=== PATIENT | male | born 1965 ===

== ENCOUNTER 2021-01-31 13:23 | Emergency (ER) | payer OTHER ==
[2021-01-31] MEDS ORDERED: Diphtheria,Pertussis(Acell),Tetanus Vaccine 0.5 ML Syringe IM ONE (16:28)
[2021-01-31] MEDS ORDERED: ceFAZolin 2 GM in Premix Bag 1 BAG IV ONE (17:05)
--- NOTE | 2021-01-31 17:19 | EDM.PDOC ---
ED HPI GENERAL MEDICAL PROBLEM - General Chief Complaint: Upper Extremity Injury/Pain Stated Complaint: L HAND THUMB NAIL HURT Time Seen by Provider: 01/31/21 16:13 Source of Information: Reports: Patient History Limitations: Reports: No Limitations - History of Present Illness INITIAL COMMENTS - FREE TEXT/NARRATIVE: HISTORY AND PHYSICAL: History of present illness: Patient is a 55-year-old male who presents emergency room today with concern of left thumb injury that occurred about 2 this afternoon. 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 Patient states that he wrapped up the area and came to the emergency room when he was able to get out of work. Patient states that he is not up-to-date on tetanus and would like to update this today. Patient states that he is fully able to move the hand without difficulty and only has pain overlying the area of the nail. Patient denies any sensation change or any other symptoms or concerns. Patient denies fever, chills, chest pain, shortness of breath, or cough. Denies headache, neck stiff ness, change in vision, syncope, or near syncope. Denies nausea, vomiting, abdominal pain, diarrhea, constipation, or dysuria. Has not noted any blood in urine or stool. Patient has been eating and drinking appropriately. Review of systems: As per history of present illness and below otherwise all systems reviewed and negative. Past medical history: As per history of present illness and as reviewed below otherwise noncontributory. Surgical history: As per history of present illness and as reviewed below otherwise noncontributory. Social history: See social history for further information Family history: As per history of present illness and as reviewed below otherwise noncontributory. Physical exam: General: Patient is alert, oriented, and in no acute distress. Patient sitting comfortably on exam table. Vitals stable and reviewed by me HEENT: Atraumatic, normocephalic, pupils equal and reactive bilaterally, negative for conjunctival pallor or scleral icterus, mucous membranes moist, TMs normal bilaterally, throat clear, neck supple, nontender, trachea midline. No drooling or trismus noted. No meningeal signs. No hot potato voice noted. Lungs: Clear to auscultation, breath sounds equal bilaterally, chest nontender. Heart: S1S2, regular rate and rhythm without overt murmur Abdomen: Soft, nondistended, nontender. Negative for masses or hepatosplenomegaly. Negative for costovertebral tenderness. Pelvis: Stable nontender. Genitourinary: Deferred. Rectal: Deferred. Skin: Intact, warm, dry. No lesions or rashes noted. Extremities: There is a complete nail avulsion of the left hand thumb with a centimeter and a half of exposed bone underlying the thumb avulsion. There is no tissue available to cover the bone and the nail is completely missing. Patient does have full range of motion of the thumb without deficit and neurovascularly intact. Radial pulses grossly intact of the left upper extremity with capillary refill less than 2 seconds. Otherwise, atraumatic, negative for cords or calf pain. Neurovascular unremarkable. Neuro: Awake, alert, oriented. Cranial nerves II through XII unremarkable. Cerebellum unremarkable. Motor and sensory unremarkable throughout. Exam nonfocal. Notes: Patient is a 55-year-old male who presents to the ED today secondary to thumb injury that occurred 3 hours prior to arrival to the emergency room. Upon arrival to the ED, patient is vitally stable and well-appearing on exam. He fernandes s have complete avulsion of his left hand thumb with a centimeter and a half of bone exposed underlying the avulsion. Patient has full range of motion and neurovascularly intact of the thumb. X-ray of the left hand shows there is a 3 mm thin linear radiodense structure in the palmar soft tissues of the distal thumb, consistent with foreign body. Overlying soft tissue edema is noted. There is no evidence of underlying fracture or joint dislocation. Remainder of hand is unremarkable. I did call and speak to the hand specialist on-call, Dr. Aviles, and thoroughly discussed patient's case. He would like patient to be transferred through their emergency room where he will evaluate patient later tonight in order to perform a dermal matrix/graft to cover the exposed bone. I did call and speak to Dr. Rincon, emergency room provider, and thoroughly discussed patient's case. Accepting of transfer. Patient offered EMS transfer but would like to transfer private vehicle. Patient is vitally stable and remains comfortable throughout stay in ED. Voices understanding and is agreeable to plan of care. Denies any further questions or concerns at this time. Diagnostics: Hand XR Therapeutics: Ancef, Tdap Impression: Thumb nail avulsion, open, left Plan: Transfer to Dr. Aviles, hand specialist/Dr. Rincon, emergency room at [facility] via private vehicle Definitive disposition and diagnosis as appropriate pending reevaluation and review of above. left thumb Pain Score (Numeric/FACES): 6 - Related Data Allergies Allergy/AdvReac Type Severity Reaction Status Date / Time No Known Allergies Allergy Verified 01/31/21 13:46 Home Meds: Home Meds . [No Known Home Meds] 01/31/21 [History] Past Medical History - Past Health History Medical/Surgical History: Denies Medical/Surgical History - Past Surgical History Musculoskeletal Surgical History: Reports: Other (See Below) Other Musculoskeletal Surgeries/Procedures:: Tendon repair L 5th finger Social & Family History - Family History Family Medical History: No Pertinent Family History - Tobacco Use Tobacco Use Status *Q: Current Every Day Tobacco User Years of Tobacco use: 20 Packs/Tins Daily: 1 - Recreational Drug Use Recreational Drug Use: No Review of Systems - Review of Systems Review Of Systems: Comprehensive ROS is negative, except as noted in HPI. ED EXAM, GENERAL - Physical Exam Exam: See Below (see dictation) Course - Vital Signs Last Recorded V/S: Last Vital Signs Temp 96.9 F 01/31/21 16:26 Pulse 66 01/31/21 16:26 Resp 16 01/31/21 16:26 BP 132/85 01/31/21 16:26 Pulse Ox 98 01/31/21 16:26 - Orders/Labs/Meds Orders: Active Orders 24 hr Category Date Time Status Vaccines to be Administered [RC] PER UNIT ROUTINE Care 01/31/21 16:28 Active Meds: Medications Discontinued Medications Generic Name Dose Route Start Last Admin Trade Name Daphney PRN Reason Stop Dose Admin Diphtheria/Tetanus/Acell Pertussis 0.5 ml 01/31/21 16:28 01/31/21 16:47 Diphtheria,Pertussis(Acell),Tetanus Vaccine 0.5 Ml Syringe IM 01/31/21 16:29 0.5 ml .ONCE ONE Administration Cefazolin Sodium/Dextrose 2 gm 50 mls @ 100 mls/hr 01/31/21 17:05 01/31/21 17:14 / Premix IV 01/31/21 17:34 100 mls/hr ONETIME ONE Administration Departure - Departure Time of Disposition: 17:19 Disposition: DC/[facility]fer to [facility] 02 Clinical Impression: Nail avulsion Open wound of thumbnail Qualifiers: Encounter type: initial encounter Laterality: left Qualified Code(s): S61.102A - Unspecified open wound of left thumb with damage to nail, initial encounter - Discharge Information Referrals: Hari Evans MD [Primary Care Provider] - Forms: ED Department Discharge Additional Instructions: [facility] ER [address] [place] [address] PH: [phone] 1. Do not eat or drink anything and go straight to [facility] emergency room. Sepsis Event Note (ED) - Evaluation Sepsis Screening Result: No Definite Risk - Focused Exam Vital Signs: Vital Signs Temp Pulse Resp BP Pulse Ox 01/31/21 16:26 96.9 F 66 16 132/85 98 01/31/21 13:43 98.8 F 77 16 145/72 H 97 - My Orders Last 24 Hours: My Active Orders 01/31/21 16:28 Vaccines to be Administered [RC] PER UNIT ROUTINE - Assessment/Plan Last 24 Hours: My Active Orders 01/31/21 16:28 Vaccines to be Administered [RC] PER UNIT ROUTINE
--- NOTE | 2021-01-31 17:24 | CR ---
Indication: Thumb injury Technique: Three views of the left hand Comparison: None Findings/Impression: There is a 3 mm thin linear radiodense structure in the palmar soft tissues of the distal thumb, consistent with foreign body. Overlying soft tissue edema is noted. There is no evidence of underlying fracture or joint dislocation. Remainder of the hand is unremarkable. Dictated by Kita Claire MD @ 01/31/2021 5:22:[address] Kita Claire @ Jan 31 2021 5:22PM
== END 2021-01-31 18:10 ==
LOC: MW.ED 13:23
DX: S61.102A Unspecified open wound of left thumb with damage to nail, initial encounter (principal); Z72.0 Tobacco use; Z23 Encounter for immunization; W23.0XXA Caught, crushed, jammed, or pinched between moving objects, initial encounter
CPT/HCPCS: 73130; 90471; 90715; 96365; 99284; J0690